=== PATIENT | female | born 1990 | race Two or more races ===

== ENCOUNTER 2016-02-27 15:47 | Inpatient (IN) | payer SELFPAY ==
[~2016-02-27] VITALS: Ht 157.5 cm; Wt 60.0 kg
[2016-02-27 19:22] LABS: BASOPHILS % (AUTO) 0.3 % (0.0-2.0); DIFF TOTAL % 100 %; EOSINOPHILS # (AUTO) 0.1 /CMM (0.0-0.7); EOSINOPHILS % (AUTO) 0.8 % (0.0-6.0); HEMATOCRIT 39 % (33-45); HEMOGLOBIN 12.6 g/dL (11.5-14.8); LYMPHOCYTES # (AUTO) 1.7 /CMM (0.8-4.8); LYMPHOCYTES % (AUTO) 17.2 % (20.0-44.0); MEAN CORPUSCULAR HEMOGLOBIN 27 PG (26.0-33.0); MEAN CORPUSCULAR HGB CONC 32 g/dl (31.0-36.0); MEAN CORPUSCULAR VOLUME 85 fL (82-100); MONOCYTES # (AUTO) 0.7 /CMM (0.1-1.30); MONOCYTES % (AUTO) 7.1 % (2.0-12.0); NEUTROPHILS # (AUTO) 7.2 /CMM (1.8-8.9); NEUTROPHILS % (AUTO) 74.6 % (43.0-81.0); PLATELET COUNT (AUTO) 414 /CMM (150-450); WHITE BLOOD COUNT (AUTO) 9.7 K/uL (4.3-11.0)
[2016-02-27 19:45] LABS: ALBUMIN 3.7 g/dL (3.4-5.0); BILIRUBIN,DIRECT 0.1 mg/dL (0.0-0.2); BILIRUBIN,TOTAL 0.3 mg/dL (0.2-1.0); CALCIUM, SERUM 9.2 mg/dL (8.5-10.1); CREATININE 0.7 mg/dL (0.6-1.3); INDIRECT BILIRUBIN 0.2 mg/dL (0.0-1.1); POTASSIUM 3.6 mmol/L (3.5-5.1); TOTAL PROTEIN, SERUM 8.4 g/dL (6.4-8.2)
[2016-02-27 22:00] VITALS: BP 126/82
[2016-02-28] MEDS ORDERED: ZOLPIDEM TARTRATE 5 MG TABLET PO PRN
[2016-02-28] MEDS ORDERED: HYDROCODONE/APAP 5/325MG 1 EACH TABLET PO PRN
[2016-02-28] MEDS ORDERED: LORAZEPAM 1 MG TABLET PO PRN
[2016-02-28] MEDS ORDERED: MAGNESIUM HYDROXIDE 30 ML UDC PO PRN
[2016-02-28] MEDS ORDERED: MORPHINE SULFATE INJ 2 MG/ML DISP.SYRIN IV PRN
[2016-02-28] MEDS ORDERED: Z GUARD REMEDY 2 OZ OINT TP PRN
[2016-02-28] MEDS ORDERED: ONDANSETRON HCL/PF 4 MG/2 ML VIAL IVP PRN
[2016-02-28] MEDS ORDERED: MAG HYDROX/AL HYDROX/SIMETH 30 ML UDC PO PRN
[2016-02-28] MEDS ORDERED: CT SWABBABLE VALVE TRANS SET 1 EA INFUS.SET MC ONE (00:01)
[2016-02-28] MEDS ORDERED: IV NS 0.9% 250 ML IV ONE (00:01)
[2016-02-28] MEDS ORDERED: IOHEXOL-300 100 ML VIAL IV ONE (00:01)
[2016-02-28] MEDS ORDERED: ACETAMINOPHEN 325 MG TABLET ONE (00:58)
[2016-02-28] MEDS: ACETAMINOPHEN 325 MG TABLET PO PRN ×3 (01:03→23:56)
[2016-02-28] MEDS: PANTOPRAZOLE 40 MG TABLET.DR PO SCH (07:30)
[2016-02-28 08:00] VITALS: BP 114/69
[2016-02-28 09:29] LABS: BASOPHILS % (AUTO) 0.3 % (0.0-2.0); DIFF TOTAL % 100 %; EOSINOPHILS # (AUTO) 0.1 /CMM (0.0-0.7); EOSINOPHILS % (AUTO) 0.7 % (0.0-6.0); HEMATOCRIT 37 % (33-45); HEMOGLOBIN 12.2 g/dL (11.5-14.8); LYMPHOCYTES # (AUTO) 1.6 /CMM (0.8-4.8); MEAN CORPUSCULAR HEMOGLOBIN 28 PG (26.0-33.0); MEAN CORPUSCULAR HGB CONC 33 g/dl (31.0-36.0); MEAN CORPUSCULAR VOLUME 84 fL (82-100); MONOCYTES # (AUTO) 0.8 /CMM (0.1-1.30); MONOCYTES % (AUTO) 8.1 % (2.0-12.0); NEUTROPHILS # (AUTO) 7.7 /CMM (1.8-8.9); NEUTROPHILS % (AUTO) 74.9 % (43.0-81.0); PLATELET COUNT (AUTO) 385 /CMM (150-450); RED BLOOD CELL COUNT(AUTO) 4.35 MIL/uL (4.0-5.2); WHITE BLOOD COUNT (AUTO) 10.3 K/uL (4.3-11.0)
[2016-02-28 09:53] LABS: ALBUMIN 3.5 g/dL (3.4-5.0); BILIRUBIN,TOTAL 0.4 mg/dL (0.2-1.0); CALCIUM, SERUM 9.1 mg/dL (8.5-10.1); CREATININE 0.6 mg/dL (0.6-1.3); PHOSPHORUS 3.2 mg/dL (2.5-4.9); POTASSIUM 3.8 mmol/L (3.5-5.1); TOTAL PROTEIN, SERUM 8.2 g/dL (6.4-8.2)
[2016-02-28 10:34] LABS: INR 1.02 (0.87-1.13)
[2016-02-28] MEDS ORDERED: GADOVERSETAMIDE 2.5 MMOL/5 ML VIAL IJ ONE (12:13)
[2016-02-28 16:00] VITALS: BP 126/79
[2016-02-28 16:46] LABS: CSF GLUCOSE 65 mg/dL (40-70); CSF PROTEIN 51.9 mg/dL (15-45)
[2016-02-28 18:03] LABS: CSF APPEARANCE CLEAR (CLEAR); CSF COLOR COLORLESS (COLORLESS)
[2016-02-28 18:04] LABS: CSF WHITE BLOOD CELL COUNT 2 /cumm (0-5); CSF WHITE BLOOD CELL COUNT 3 /cumm (0-5)
[2016-02-28 20:00] VITALS: BP 116/75
[2016-02-28 20:50] VITALS: BP 116/75
[2016-02-29] MEDS: PANTOPRAZOLE 40 MG TABLET.DR PO SCH (07:30)
[2016-02-29 08:00] VITALS: BP 105/58
[2016-02-29 08:41] VITALS: BP 105/58
[2016-02-29] MEDS ORDERED: IV NS 0.9% 250 ML IV ONE (09:05)
[2016-02-29] MEDS ORDERED: CT SWABBABLE VALVE TRANS SET 1 EA INFUS.SET MC ONE (09:05)
[2016-02-29] MEDS ORDERED: LIDOCAINE HCL/PF 1% 30 ML SDV ONE (09:05)
[2016-02-29] MEDS ORDERED: IOHEXOL-300 100 ML VIAL IV ONE (09:05)
[2016-02-29 12:27] LABS: HEPATITIS C VIRUS AB <0.1 s/co ratio (0.0-0.9)
[2016-02-29] MEDS: ACETAMINOPHEN 325 MG TABLET PO PRN ×2 (12:30→23:56)
[2016-02-29 14:29] LABS: *SPE ALBUMIN 3.6 g/dL (2.9-4.4)
[2016-02-29] MEDS ORDERED: DEXAMETHASONE 4 MG TABLET PO SCH (15:30)
[2016-02-29 16:09] VITALS: BP 111/64
[2016-02-29] MEDS: DEXAMETHASONE 4 MG TABLET PO SCH (16:29)
[2016-02-29 20:00] VITALS: BP 111/78
[2016-02-29 20:31] LABS: KETONES,URINE TRACE (NEGATIVE); LEUKOCYTE ESTERASE ,URINE NEGATIVE (NEGATIVE)
[2016-02-29 20:45] LABS: ADD UA MICROSCOPIC YES
[2016-02-29 20:47] LABS: ADD URINE CULTURE YES; RBC,URINE 0-2 /HPF (0-2)
[2016-02-29 22:00] VITALS: BP 111/78
[2016-03-01] MEDS: PANTOPRAZOLE 40 MG TABLET.DR PO SCH (06:46)
[2016-03-01] MEDS: ACETAMINOPHEN 325 MG TABLET PO PRN (06:46)
[2016-03-01 08:00] VITALS: BP 144/64
[2016-03-01] MEDS: DEXAMETHASONE 4 MG TABLET PO SCH ×3 (08:31→16:17)
[2016-03-01] MEDS ORDERED: FLUCONAZOLE (100 MG) 100 MG TABLET PO SCH (15:00)
[2016-03-01] MEDS ORDERED: CIPROFLOXACIN HCL 250 MG TABLET PO SCH (15:00)
== END 2016-03-01 16:45 | disposition home or self-care (01) | DRG 824 ==
LOC: ER 15:54 → MED 22:19
PROVIDERS: ADMIT Family Medicine; ATTEND Family Medicine
PROC: 009U3ZX Drainage of Spinal Canal, Percutaneous Approach, Diagnostic (ICD-10-PCS; principal; 2016-02-28)
PROC: B01BYZZ Fluoroscopy of Spinal Cord using Other Contrast (ICD-10-PCS; principal; 2016-02-28)
PROC: 07B23ZX Excision of Left Neck Lymphatic, Percutaneous Approach, Diagnostic (ICD-10-PCS; 2016-02-29)
DX: C85.92 Non-Hodgkin lymphoma, unspecified, intrathoracic lymph nodes (principal); C79.2 Secondary malignant neoplasm of skin; N39.0 Urinary tract infection, site not specified; R59.1 Generalized enlarged lymph nodes; B96.20 Unspecified Escherichia coli [E. coli] as the cause of diseases classified elsewhere; B37.3 Candidiasis of vulva and vagina
CPT/HCPCS: 36415; 38505; 62270; 70450-TC; 70490-TC; 70491-TC; 70553-TC; 71010-TC; 71260-TC; 74178; 76536-TC; 80048-TC; 80053-TC; 80076-TC; 81000-TC; 82232; 82784; 83615-TC; 83735-TC; 84100-TC; 84155; 84165; 84703-TC; 85025-TC; 85610-TC; 85730-TC; 86304; 86334; 86706; 86803; 87070-TC; 87081-TC; 87086-TC; 87186-TC; 87340; 88305-TC; 88312-TC; 88342; 89051-TC; 93307-TC; A4606; A6403; A9579; J3490; J7050; J8540; Q9967; Z7610

== ENCOUNTER 2022-11-30 19:24 | Emergency (ER) | payer MEDICAID, OTHER ==
[~2022-11-30] VITALS: Ht 157.5 cm; Wt 66.7 kg
[2022-11-30 20:09] VITALS: BP 116/74; TEMP 98.2
[2022-11-30] MEDS ORDERED: AMOX/CLAVULANATE 250 MG TABLET ONE (20:22)
[2022-11-30] MEDS ORDERED: AMOX500C2 PO (20:23)
[2022-11-30] MEDS ORDERED: IBUPROFEN 600 MG TABLET ONE (20:23)
[2022-11-30] MEDS ORDERED: AMOXICILLIN TRIHYDRATE 250 MG CAPSULE ONE (20:24)
[2022-11-30] MEDS ORDERED: AMOXICILLIN TRIHYDRATE 500 MG CAPSULE PO ONE (20:30)
[2022-11-30] MEDS ORDERED: IBUPROFEN 600 MG TABLET PO ONE (20:30)
[2022-11-30 20:31] VITALS: O2SAT 100
== END 2022-11-30 20:31 | disposition home or self-care (01) ==
LOC: ER 19:30
DX: J02.0 Streptococcal pharyngitis (principal)

== ENCOUNTER 2022-12-12 11:03 | Emergency (ER) | payer OTHER ==
[~2022-12-12] VITALS: Ht 157.5 cm; Wt 65.8 kg
[~2022-12-12 11:03] MED LIST: AMOX500C2 PO
[2022-12-12] MEDS ORDERED: MUPI15CR TP (13:17)
[2022-12-12] MEDS ORDERED: VALA10002 PO (13:17)
[2022-12-12] MEDS ORDERED: IBUP-1955 PO (13:17)
[2022-12-12] MEDS ORDERED: CEPH500C2 PO (13:17)
[2022-12-12 13:36] VITALS: BP 110/85; TEMP 98.4; O2SAT 100
== END 2022-12-12 13:30 | disposition home or self-care (01) ==
LOC: ER 11:03
DX: L03.116 Cellulitis of left lower limb (principal); B02.9 Zoster without complications; R23.4 Changes in skin texture
CPT/HCPCS: 99284; J7030